=== PATIENT | male | born 1945 | race Caucasian/White ===

== ENCOUNTER 2019-04-07 09:52 | Inpatient (IN) | payer OTHER ==
[2019-04-07] MEDS ORDERED: Ondansetron INJ* 2 MG/ML VIAL IV ONE (10:12)
[2019-04-07] MEDS ORDERED: Morphine 4 MG/ML VIAL (1 ml) 4 MG/ML VIAL IV ONE (10:20)
[2019-04-07 11:03] LABS: ABS Lymphocytes 0.9 10^3/ul (1.0-4.8); ABS Monocytes 0.8 10^3/ul (0-0.8); ABS Neutrophils 10.1 10^3/ul (1.5-7.7); Eosinophil % 0.2 %; Hematocrit 37 % (42-52); Hemoglobin 12.2 g/dL (14.0-18.0); Lymphocyte % 7.8 %; Mean Corpuscular HGB Conc 33 g/dL (31-36); Mean Corpuscular Hemoglobin 30 pg (27-31); Mean Corpuscular Volume 90 fL (80-94); Mean Platelet Volume 8.4 fL (7.4-10.4); Platelet Count 193 10^3/uL (150-450); Red Blood Count 4.12 10^6 /uL (4.18-5.48); Red Cell Distribution Width 16 % (10-15); White Blood Count 11.9 10^3/uL (3.5-10.8)
[2019-04-07 11:15] LABS: INR 4.43 (0.82-1.09)
[2019-04-07 11:30] LABS: ALT 13 U/L (7-52); AST 12 U/L (13-39); Albumin 3.8 g/dL (3.2-5.2); Albumin/Globulin Ratio 1.2 (1-3); Alkaline Phosphatase 73 U/L (34-104); Anion Gap 6 mmol/L (2-11); BUN/Creatinine Ratio 23.7 (8-20); Blood Urea Nitrogen 14 mg/dL (6-24); CO2 Carbon Dioxide 28 mmol/L (22-32); Chloride 108 mmol/L (101-111); EGFR Non-African American 133.9 (>60); Globulin 3.2 g/dL (2-4); Glucose 117 mg/dL (70-100); Magnesium 1.9 mg/dL (1.9-2.7); Potassium 3.7 mmol/L (3.5-5.0); Sodium 142 mmol/L (135-145)
--- NOTE | 2019-04-07 12:44 | ED ---
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 Patient resides at [address] [place] [address] and was recently transferred there 10 days ago. He states for the last 10 days he has felt dizzy, however has never had a syncopal episode until today. He states this morning while waiting for his medications, he was becoming dizzy and the next thing he remembers he was on the floor. He did not ambulate immediately following as he was told to stay down into the ambulance arrived. He denies any CP or SOB. He does endorse diffuse back pain throughout, he states this is at his baseline, however now worse. He does not take any medication for his back. Currently medications include Coumadin, sotalol, lisinopril, amlodipine. He does not see a plate corrector. Since he was recently transferred from [place] to [address] [place] [address], he does not have good continuity of care and has not seen a primary care provider which has followed his medications. - History Of Current Complaint Chief Complaint: EDSyncope Time Seen by Provider: 04/07/19 10:01 Hx Obtained From: Patient Onset/Duration: Sudden Onset Timing: Constant Context: Witnessed Activity At Onset: At Rest Associated Head Trauma: Yes Alleviating Factor(s): Nothing - Risk Factors Cardiac Risk Factors: Hypertension, Elevated Lipids, CHF, CAD Dysrhythmia Risk Factors: Age Greater Than 45, Underlying CAD, Underlying CHF Risk Factor(s): Coumadin - Allergies/Home Medications Allergies/Adverse Reactions: Allergies Allergy/AdvReac Type Severity Reaction Status Date / Time No Known Allergies Allergy Verified 04/07/19 10:16 Home Medications: Home Medications Atorvastatin* [Lipitor*] 10 mg PO BEDTIME 04/07/19 [History Confirmed 04/07/19] Ferrous Sulfate TAB* 325 mg PO DAILY 04/07/19 [History Confirmed 04/07/19] Finasteride TAB* [Proscar TAB*] 5 mg PO DAILY 04/07/19 [History Confirmed ] Furosemide TAB* [Lasix TAB*] 40 mg PO DAILY 04/07/19 [History Confirmed 04/07/19 ] Lisinopril TAB* [Prinivil TAB*] 40 mg PO DAILY 04/07/19 [History Confirmed 04/07] Multivitamins/Minerals TAB* [Theragran/minerals TAB*] 1 tab PO DAILY 04/07/19 [ History Confirmed 04/07/19] Omeprazole CAP (NF) [Prilosec CAP* 20 MG] 20 mg PO DAILY 04/07/19 [History Confirmed 04/07/19] Potassium Chloride [Klor-Con 8] 8 meq PO DAILY 04/07/19 [History Confirmed 04/07] Ranitidine TAB (NF) [Zantac TAB (NF)] 150 mg PO BID 04/07/19 [History Confirmed 04/07/19] Sotalol TAB* [Betapace 80 MG TAB*] 120 mg PO BID 04/07/19 [History Confirmed ] Warfarin TAB(*) [Coumadin TAB(*)] 1 mg PO DAILY 04/07/19 [History Confirmed ] Warfarin TAB(*) [Coumadin TAB(*)] 2.5 mg PO DAILY 04/07/19 [History Confirmed ] amLODIPine TAB* [Norvasc 5 mg TAB*] 10 mg PO DAILY 04/07/19 [History Confirmed 04/07/19] PMH/Surg Hx/FS Hx/Imm Hx Previously Healthy: Yes - Immunization History Hx Pertussis Vaccination: No Immunizations Up to Date: Yes Infectious Disease History: No Infectious Disease History: Denies: Traveled Outside the [place] in Last 30 Days - Social History Occupation: Unemployed Lives: Alone - [facility] Alcohol Use: None Hx Substance Use: No Substance Use Type: Reports: None Hx Tobacco Use: Yes Smoking Status (MU): Former Smoker Review of Systems Constitutional: Negative Negative: Fever, Chills, Fatigue, Skin Diaphoresis Negative: Palpitations, Chest Pain Negative: Shortness Of Breath, Cough Genitourinary: Negative Positive: no symptoms reported, see HPI Positive: Arthralgia - back pain diffuse Positive: Other - small laceration posterior scalp Negative: Headache, Weakness All Other Systems Reviewed And Are Negative: Yes Physical Exam Triage Information Reviewed: Yes Vital Signs On Initial Exam: Initial Vitals Temp Pulse Resp BP Pulse Ox 96.1 F 90 16 146/96 98 04/07/19 09:55 04/07/19 09:55 04/07/19 09:55 04/07/19 09:55 04/07/19 09:55 Vital Signs Reviewed: Yes Appearance: Positive: Well-Appearing, Signs of Trauma Skin: Positive: Skin Color Reflects Adequate Perfusion, Other - 1.2 posterior scalp Neck: Positive: Supple, No Lymphadenopathy Respiratory/Lung Sounds: Positive: Clear to Auscultation, Breath Sounds Present Cardiovascular: Positive: RRR, Pulses are Symmetrical in both Upper and Lower Extremities Musculoskeletal: Positive: Pain @ - diffusely throughout back Neurological: Positive: Speech Normal Psychiatric: Positive: Affect/Mood Appropriate Procedures - Laceration/Wound Repair scalp Location: head Description: Linear Length, Depth and Shape: 1.2cm length, superficial Betadine Prep?: No Irrigated w/ Saline (ccs): 60 Laceration/Wound Explored: clean Sterile Dressing Applied?: No Diagnostics - Vital Signs Vital Signs Temp Pulse Resp BP Pulse Ox 04/07/19 10:42 16 04/07/19 10:00 86 35 97 04/07/19 09:59 88 98 04/07/19 09:57 88 146/96 98 04/07/19 09:55 96.1 F 90 16 146/96 98 - Laboratory Lab Results: Lab Results 04/07/19 04/07/19 04/07/19 Range/Units 10:55 10:55 10:55 WBC 11.9 H (3.5-10.8) 10^3/uL RBC 4.12 L (4.18-5.48) 10^6 /uL Hgb 12.2 L (14.0-18.0) g/dL Hct 37 L (42-52) % MCV 90 (80-94) fL MCH 30 (27-31) pg MCHC 33 (31-36) g/dL RDW 16 H (10-15) % Plt Count 193 (150-450) 10^3/uL MPV 8.4 (7.4-10.4) fL Neut % (Auto) 85.0 % Lymph % (Auto) 7.8 % Lumpkin % (Auto) 6.8 % Eos % (Auto) 0.2 % Baso % (Auto) 0.2 % Absolute Neuts (auto) 10.1 H (1.5-7.7) 10^3/ul Absolute Lymphs (auto) 0.9 L (1.0-4.8) 10^3/ul Absolute Monos (auto) 0.8 (0-0.8) 10^3/ul Absolute Eos (auto) 0.0 (0-0.6) 10^3/ul Absolute Basos (auto) 0.0 (0-0.2) 10^3/ul Absolute Nucleated RBC 0.0 10^3/ul Nucleated RBC % 0.0 INR (Anticoag Therapy) 4.43 H (0.82-1.09) Sodium 142 (135-145) mmol/L Potassium 3.7 (3.5-5.0) mmol/L Chloride 108 (101-111) mmol/L Carbon Dioxide 28 (22-32) mmol/L Anion Gap 6 (2-11) mmol/L BUN 14 (6-24) mg/dL Creatinine 0.59 L (0.67-1.17) mg/dL Est GFR ( Amer) 162.0 (>60) Est GFR (Non-Af Amer) 133.9 (>60) BUN/Creatinine Ratio 23.7 H (8-20) Glucose 117 H (70-100) mg/dL Lactic Acid (0.5-2.0) mmol/L Calcium 9.0 (8.6-10.3) mg/dL Magnesium 1.9 (1.9-2.7) mg/dL Total Bilirubin 0.60 (0.2-1.0) mg/dL AST 12 L (13-39) U/L ALT 13 (7-52) U/L Alkaline Phosphatase 73 (34-104) U/L Troponin I 0.00 (<0.04) ng/mL B-Natriuretic Peptide (<=100) pg/mL Total Protein 7.0 (6.4-8.9) g/dL Albumin 3.8 (3.2-5.2) g/dL Globulin 3.2 (2-4) g/dL Albumin/Globulin Ratio 1.2 (1-3) 04/07/19 04/07/19 Range/Units 10:55 10:55 WBC (3.5-10.8) 10^3/uL RBC (4.18-5.48) 10^6 /uL Hgb (14.0-18.0) g/dL Hct (42-52) % MCV (80-94) fL MCH (27-31) pg MCHC (31-36) g/dL RDW (10-15) % Plt Count (150-450) 10^3/uL MPV (7.4-10.4) fL Neut % (Auto) % Lymph % (Auto) % Lumpkin % (Auto) % Eos % (Auto) % Baso % (Auto) % Absolute Neuts (auto) (1.5-7.7) 10^3/ul Absolute Lymphs (auto) (1.0-4.8) 10^3/ul Absolute Monos (auto) (0-0.8) 10^3/ul Absolute Eos (auto) (0-0.6) 10^3/ul Absolute Basos (auto) (0-0.2) 10^3/ul Absolute Nucleated RBC 10^3/ul Nucleated RBC % INR (Anticoag Therapy) (0.82-1.09) Sodium (135-145) mmol/L Potassium (3.5-5.0) mmol/L Chloride (101-111) mmol/L Carbon Dioxide (22-32) mmol/L Anion Gap (2-11) mmol/L BUN (6-24) mg/dL Creatinine (0.67-1.17) mg/dL Est GFR ( Amer) (>60) Est GFR (Non-Af Amer) (>60) BUN/Creatinine Ratio (8-20) Glucose (70-100) mg/dL Lactic Acid 2.3 H* (0.5-2.0) mmol/L Calcium (8.6-10.3) mg/dL Magnesium (1.9-2.7) mg/dL Total Bilirubin (0.2-1.0) mg/dL AST (13-39) U/L ALT (7-52) U/L Alkaline Phosphatase (34-104) U/L Troponin I (<0.04) ng/mL B-Natriuretic Peptide 34 (<=100) pg/mL Total Protein (6.4-8.9) g/dL Albumin (3.2-5.2) g/dL Globulin (2-4) g/dL Albumin/Globulin Ratio (1-3) Result Diagrams: 04/08/19 05:27 04/08/19 05:27 Lab Statement: Any lab studies that have been ordered have been reviewed, and results considered in the medical decision making process. Course/Dx Course Of Treatment: During his course of treatment, the patient is evaluated for trauma following a syncopal episode. On arrival into the ED, the patient has been placed in a c-collar prior to arrival. This was left in place until CT scans were obtained. Patient was rolled from hardboard. Physical examination the cervical, thoracic and lumbar spine revealed no specific tenderness or abnormalities. No step-off noted. No signs of trauma. Posterior scalp with approximately 1.2 cm laceration. Bleeding is controlled at this time. No other evidence of trauma. CT cervical, thoracic and lumbar spine obtained which shows no acute abnormalities, however remote and chronic changes. Labs obtained which are fairly unremarkable except for lactic 2.3. Nonspecific T wave changes on EKG V2 to V6. [facility] as well as [address] [place] [address] was contacted in attempts to obtain further medical records as well as old EKGs. Discussed case with hospitalist, who agreed to admit for further evaluation of T wave changes/inversions and syncopal episode. - Diagnoses Provider Diagnoses: Syncope and collapse, T wave inversion in EKG, Back pain Discharge - Sign-Out/Discharge Documenting (check all that apply): Patient Departure All imaging exams completed and their final reports reviewed: Yes Patient Received Moderate/Deep Sedation with Procedure: No - Discharge Plan Condition: Fair Disposition: ADMITTED TO [facility] - Billing Disposition and Condition Condition: FAIR Disposition: Admitted to [facility]
[2019-04-07] MEDS ORDERED: Magnesium Oxide TAB* 400 MG PO ONE (13:00)
[2019-04-07 13:49] LABS: Total Iron Binding Capacity 374 mcg/dL (250-450); Transferrin 267 mg/dL (203-362)
[2019-04-07 14:04] LABS: TSH (Thyroid Stimulating Horm) 0.35 mcIU/mL (0.34-5.60)
[2019-04-07 14:12] LABS: Ferritin 40.1 ng/mL (24-336)
[2019-04-07 14:15] LABS: Folate 6.85 ng/mL (>3.99)
--- NOTE | 2019-04-07 16:58 | HP ---
DATE OF ADMISSION: 04/07/2019. ATTENDING PHYSICIAN: Dr. Sandrine Cabello * (dictated by Hannah Wesley, NICKI). PRIMARY CARE PHYSICIAN: Provider at [facility]. CHIEF COMPLAINT: Syncope. HISTORY OF PRESENT ILLNESS: Mr. Chaparro is a 73-year-old male with a past medical history significant for A-fib, sick sinus syndrome, hyperlipidemia, status post AVR, hypertension, CHF, lower GI bleed who presented to the emergency department today after a syncopal episode. The patient reports that he was standing, filling out his pills into his pill box when he had a syncopal episode. He reports he felt a little dizzy prior to the episode and then woke on the floor with his bunkmate yelling for help. The patient denies any associated symptoms such as shortness of breath, chest pain, nausea, and palpitations. The patient reports that he has been experiencing dizziness off and on for approximately ten days. He reports aggravating symptoms include standing. He reports alleviating symptoms include rest. He also reports that he has been feeling overlying fatigued, weak, and just "not himself." The patient denies any fevers, anorexia, chest pain, edema, cough, hemoptysis, shortness of breath, nausea or vomiting, diarrhea, abdominal pain, hematuria, dysuria, focal weakness, visual complaints, sore throat, nasal congestion, arthralgias or myalgias, rashes or lesions. It should be noted that the patient is on Coumadin and has a supratherapeutic INR. While in the emergency room, the patient had a CT of the brain which showed a posterior scalp hematoma, no intracranial abnormality. Given his fall , he also had imaging of his cervical spine, lumbar spine, and thoracic spine, all of which showed no fracture or malalignment. He also had a chest x-ray which was unremarkable. Given the patient's syncope and his cardiac history, the Hospitalists were asked to admit. PAST MEDICAL HISTORY: 1. A-fib. 2. Sick sinus syndrome, status post pacemaker. 3. Hyperlipidemia. 4. Status post AVR. 5. Hypertension. 6. CHF. 7. Lower GI bleed. PAST SURGICAL HISTORY: AVR, right wrist. HOME MEDICATIONS: 1. Coumadin 2.5 mg p.o. daily. 2. Coumadin 1 mg p.o. daily. 3. Ferrous Sulfate 325 mg p.o. daily. 4. Multivitamin one tab p.o. daily. 5. Lipitor 10 mg p.o. at bedtime. 6. Sotalol 120 mg p.o. b.i.d. 7. Ranitidine 150 mg p.o. b.i.d. 8. Potassium Chloride 8 mEq p.o. daily. 9. Omeprazole 20 mg p.o. daily. 10. Lisinopril 40 mg p.o. daily. 11. Lasix 40 mg p.o. daily. 12. Finasteride 5 mg p.o. daily. 13. Amlodipine 10 mg p.o. daily. ALLERGIES: The patient has no known drug allergies. FAMILY HISTORY: The patient reports mother had asthma and at age 94. The patient reports father had a cardiac history and at the age of 102. SOCIAL HISTORY: The patient resides at [facility] where he was recently transferred from [place]. The patient has been incarcerated for approximately 48 years. The patient is a former smoker. He reports 30 years at a pack a day. The patient reports occasional alcohol use "when I can get my hands on it." He reports his last drink was approximately 48 years ago. The patient reports illicit drug use. He reports his drug of choice was heroin and once again will use it "when I can get my hands on it." PHYSICAL EXAMINATION GENERAL: Mr. Chaparro is a 73-year-old male who is lying in bed. He appeared to be in no acute distress. He appears his stated age. VITAL SIGNS: Temperature 96.1, heart rate 75, respiratory rate 16, O2 saturation 97 percent on room air, blood pressure 146/96. HEENT: EOM's intact. PERRLA. Oral mucosa is moist without lesion. Posterior pharynx is clear. NECK: Supple. No lymphadenopathy. CARDIAC: S1, S2 present. Systolic murmur. Regular rate and rhythm. No rubs or gallops. RESPIRATORY: Lungs are clear to auscultation. Good aeration. No rhonchi, wheezes, or rubs. ABDOMEN: Soft, nontender. Bowel sounds normoactive. EXTREMITIES: No edema. No clubbing or cyanosis. Pedal pulses are 2+ bilaterally. MUSCULOSKELETAL: No pain or deformities. SKIN: The patient had a laceration to the posterior head. NEUROLOGIC: Cranial nerves II through XII are grossly intact. No drift. Strength is 5/5 throughout. DIAGNOSTIC STUDIES/LABORATORY DATA: WBC 11.9, hemoglobin 12.2, hematocrit 37, platelet 193; INR 4.43; sodium 142, potassium 3.7, chloride 108, carbon dioxide 28, BUN 14, creatinine 0.59, glucose 117, lactic 2.3, magnesium 1.9, troponin 0.00, BNP 34. ASSESSMENT AND PLAN: 1. Syncope: The patient reports he has been intermittently dizzy and had a full syncopal episode today which resulted in a head laceration. Given that patient is supratherapeutic on his INR, he had a head CT which was negative. I would have a low threshold for repeating this head CT given his supratherapeutic INR and his syncopal episode. I have placed his on q.2 hour neuro checks. On the differential, include cardiac. Given the patient's history and presence of a pace-maker, I will obtain an echo and have his pacemaker interrogated. I will also cycle his troponins. The patient currently denies any chest pain or other cardiac symptoms, but I think it is worth cycling his troponins and repeating EKG's. He will also be placed on tele. I will also obtain orthostatic vital signs. Additionally on the differential, include infection. The patient had a mildly elevated WBC which I suspect is secondary to syncope as he is not tachycardic and does not have a fever. He also had a negative chest x-ray. The patient has no recent symptoms of a viral or bacterial infection. Either way, I have ordered a urine and will repeat a CBC tomorrow. Finally on the differential, include anemia. The patient is only slightly anemic at 12.2 and 37. The patient does report a history of anemia due to a lower GI bleed where he was seen at [facility]. I have ordered a stool. I have also ordered a iron study, vitamin B12, and folate. 2. Lactic acidosis: The patient has a slightly elevated lactic at 2.3. I suspect this is due to his syncopal episode and I will repeat it in three hours. The patient does not meet SIRS criteria currently. 3. A-fib: We will place the patient on tele. He is currently in sinus rhythm on the EKG. We will continue his Coumadin per pharmacy protocol, but given his supratherapeutic INR today, I suspect we will hold and repeat an INR tomorrow. 4. T-wave changes: The patient has new T-waves inversions in V2 through 6. He does not have any cardiac symptoms which would suspect an acute problem. His last EKG that we could obtain from his facility was four years ago which he did not have these inversions at that time. Once again, we will repeat his troponin, repeat an EKG, and obtain an echo. 5. Sick sinus rhythm, status post pacer: The patient denies palpitations or other cardiac symptoms. I have placed an order for his pacemaker to be interrogated. He has a mmCHANNEL. 6. Hyperlipidemia: The patient has a history of hyperlipidemia and is currently on a statin which we will continue. I have also ordered lipids to be drawn for the morning. 7. History of AVR: The patient has an aortic valve replacement. He is not a great historian and is unsure why he needed this replaced. I have ordered an echo and will continue his Coumadin. 8. Hypertension: The patient is currently normotensive with vital signs in the 140s. I will continue his home medications unless he has positive orthostasis. 9. CHF: The patient does not currently appear to in CHF exacerbation as his BNP is normal, lung exam is unremarkable, and is not complaining of any shortness of breath and has no edema. I will continue his Lasix, place him on strict I's and O's, and have daily weights. Once again, we are also obtaining an echo. 10. FEN: The patient will be placed on a cardiac, no caffeine diet. 11. DVT prophylaxis: The patient is high risk. The patient will be continued on his Coumadin per pharmacy protocol. 12. Code status: The patient is a full code. TIME SPENT: Approximately 65 minutes were spent on this admission, greater than half that time was spent [id number] with the patient obtaining my history , performing my physical exam, and discussing plan of care. This plan has also been reviewed with the my attending, Dr. Cabello, who agreed with the plan of care. Reviewed by HANNAH WESLEY NP 04/11/19 @ [id number]/[facility] #: [id number] MARGARET
[2019-04-07] MEDS ORDERED: Metoprolol Tartrate IV* 1 MG/ML 5 ML VIAL IV PRN (17:13)
[2019-04-07] MEDS ORDERED: Metoprolol Tartrate IV* 1 MG/ML 5 ML VIAL ONE (17:19)
[2019-04-07] MEDS ORDERED: NS 0.9% 1000 ML** 1,000 ML IV SCH (17:30)
[2019-04-07] MEDS: Acetaminophen TAB* 325 MG PO PRN (20:21)
[2019-04-07] MEDS: Famotidine TAB* 20 MG PO SCH (20:22)
[2019-04-07] MEDS: Atorvastatin* 10 MG TAB PO SCH (20:22)
[2019-04-07] MEDS: Sotalol TAB* 80 MG PO SCH (20:22)
[2019-04-07 21:55] LABS: Urine Appearance Turbid; Urine Bacteria 3+ (Absent); Urine Bilirubin Negative (Negative); Urine Blood Negative (Negative); Urine Color Amber; Urine Glucose Negative (Negative); Urine Ketones Negative (Negative); Urine Nitrite Positive (Negative); Urine Protein 1+(30 mg/dL) (Negative); Urine Red Blood Cell 1+(3-5/hpf) (Absent); Urine Urobilinogen Negative (Negative); Urine White Blood Cell 3+(>20/hpf) (Absent)
--- NOTE | 2019-04-07 22:26 | ECHO ---
*[facility]* [place] [address] Fax #: [phone] Transthoracic Echocardiogram Patient: Martin Chaparro [id number] : 1945 Study Date: 04/07/2019 Age: 73 Gender: M HR: 78 bpm Height: 70 in /177.8 cm BSA: 2.09 m^2 Weight: 199.6 lb /90.7 kg BMI: 28.7 kg/m^2 *Park Keeper: * Chloé Golden [facility] *Referring Physician: * Nubia Vences *Reading Physician: * Bryan Navarro MD Indications: Syncope. History: Congestive heart failure. Chronic obstructive pulmonary disease. Risk factors: Hypertension. Dyslipidemia. Labs, prior tests, procedures, and surgery: Permanent pacemaker system implantation. Aortic valve replacement with a bioprosthetic valve. Conclusions Summary: - Left ventricle: Systolic function is normal. The estimated ejection fraction is 65-70%. Features are consistent with a pseudonormal left ventricular filling pattern, with concomitant abnormal relaxation and increased filling pressure (grade 2 diastolic dysfunction). - Right ventricle: The cavity size is normal. Wall thickness is mildly to moderately increased. - Mitral valve: Is mildly to moderately calcified. The leaflets are mildly thickened. Mobility is restricted. The findings are consistent with trivial stenosis. There is trace regurgitation. - Aortic valve: The mean systolic gradient is 15.0 mm Hg. The LVOT to aortic valve VTI ratio is 0.34. The valve area by the velocity-time integral method is 1.20 cm^2. The valve area by the peak velocity method is 1.10 cm^2. Study data: Transthoracic echocardiogram. Procedure: Transthoracic echocardiography was performed. Image quality was fair. Complete 2D, spectral Doppler, and color flow Doppler. Location: Emergency department. Patient status: Inpatient. Patient room number: 9. Rhythm: Normal sinus rhythm. Findings Left ventricle: The cavity size is normal. Wall thickness is moderately increased. Systolic function is normal. The estimated ejection fraction is 65-70%. Wall motion is normal; there are no regional wall motion abnormalities. Features are consistent with a pseudonormal left ventricular filling pattern, with concomitant abnormal relaxation and increased filling pressure (grade 2 diastolic dysfunction). Right ventricle: The cavity size is normal. Wall thickness is mildly to moderately increased. Pacer wire noted in the right ventricle. Systolic function is normal. Left atrium: The atrium is mildly dilated. Right atrium: Not well visualized. Pacer wire noted in right atrium. Mitral valve: Is mildly to moderately calcified. The leaflets are mildly thickened. Mobility is restricted. The findings are consistent with trivial stenosis. There is trace regurgitation. Aortic valve: Not well visualized. There is a bioprosthetic valve. There is no significant regurgitation. Tricuspid valve: The leaflets are normal thickness. There is no evidence of stenosis. There is no significant regurgitation. Pulmonic valve: The leaflets are normal thickness. There is no evidence of stenosis. There is no significant regurgitation. Aorta: The aortic root appears normal. The aortic arch appears normal. Pericardium: There is no significant pericardial effusion. Pulmonary arteries: Not well visualized. Systolic pressure can not be accurately estimated. Systemic veins: Inferior vena cava: The vessel is normal in size. There is (>= 50%) respiratory change in the IVC dimension. Measurements Left ventricle Value Ref Aortic valve continued Value Ref YEIMY, LAX (L) 4.0 cm 4.2 - 5.8 Mean grad, S 15.0 mm Hg ---- ESD, LAX 3.2 cm 2.5 - 4.0 Peak grad, S 30.0 mm Hg ---- FS, LAX (L) 20 % 25 - 43 LVOT/AV, VTI ratio 0.34 ---- PW, ED, LAX (H) 1.4 cm 0.6 - 1.0 BROOK, VTI 1.20 cm^2 ---- EF (L) 41 % 52 - 72 BROOK, Vmax 1.10 cm^2 ---- E', lat lorenza, TDI (L) 5.1 cm/sec >=10.0 E/e', lat lorenza, 14 Mitral valve Value Ref TDI Peak E 0.69 m/sec ---- E', med lorenza, TDI (L) 3.9 cm/sec >=7.0 Peak A 0.96 m/sec ---- E/e', med lorenza, 18 Decel time 219 ms --- - TDI PHT 91 ms ---- E', avg, TDI 4.5 cm/sec Mean grad, D 2.0 mm Hg --- - E/e', avg, TDI (H) 15 <=14 Peak grad, D 5.0 mm Hg ---- Peak E/A ratio 0.7 ---- LVOT Value Ref MVA, PHT 2.4 cm^2 ---- Diam, S 2.10 cm Area 3.5 cm^2 Pulmonic valve Value Ref Peak regan, S 0.84 m/sec Peak v, S 0.76 m/sec ---- VTI, S 17.0 cm Peak grad, S 2.0 mm Hg ---- Mean grad, S 1 mm Hg SV 58 ml Aortic root Value Ref SV/bsa 28 ml/m^2 Root diam 3.2 cm <4.2 Ventricular septum Value Ref Ascending aorta Value Ref IVS, ED (H) 1.6 cm 0.6 - 1.0 AAo AP diam, S 3.2 cm ---- Right ventricle Value Ref Aortic arch Value Ref YEIMY, LAX 3.3 cm Arch diam 2.2 cm ---- Left atrium Value Ref Decending aorta Value Ref AP dim, ES (H) 4.20 cm 3.00 - Rosana peak regan 0.39 m/sec ---- 4.00 ML dim, A4C 4.3 cm Inferior vena cava Value Ref SI dim, A4C 5.7 cm Diam 1.0 cm ---- Vol/bsa, ES, A/L (H) 35 ml/m^2 16 - 34 Pulmonary veins Value Ref Right atrium Value Ref Peak v, S 0.49 m/sec ---- Estimated RAP 8 mm Hg Peak v, D 0.38 m/sec ---- Peak S/D ratio 1.3 ---- Aortic valve Value Ref A rev duration 98 ms ---- Lorenza diam, ED 2.0 cm Peak v, S 2.7 m/sec VTI, S 50.0 cm Legend: (L) and (H) gary values outside specified reference range. Prepared and electronically signed by Bryan Navarro MD 04/07/2019 22:24
[2019-04-08 06:01] LABS: ABS Eosinophils 0.1 10^3/ul (0-0.6); ABS Lymphocytes 1.4 10^3/ul (1.0-4.8); ABS Monocytes 0.9 10^3/ul (0-0.8); ABS Neutrophils 6.7 10^3/ul (1.5-7.7); Eosinophil % 1.4 %; Hematocrit 33 % (42-52); Hemoglobin 11.2 g/dL (14.0-18.0); Lymphocyte % 15.3 %; Mean Corpuscular HGB Conc 34 g/dL (31-36); Mean Corpuscular Hemoglobin 30 pg (27-31); Mean Corpuscular Volume 90 fL (80-94); Mean Platelet Volume 8.5 fL (7.4-10.4); Nucleated Red Blood Cells % 0.1; Platelet Count 184 10^3/uL (150-450); Red Blood Count 3.71 10^6 /uL (4.18-5.48); Red Cell Distribution Width 16 % (10-15); White Blood Count 9.1 10^3/uL (3.5-10.8)
[2019-04-08 06:09] LABS: INR 3.61 (0.82-1.09)
[2019-04-08 06:17] LABS: BUN/Creatinine Ratio 27.6 (8-20); Calcium 8.8 mg/dL (8.6-10.3); EGFR African American 165.3 (>60); EGFR Non-African American 136.6 (>60); HDL Cholesterol 35.8 mg/dL; Potassium 3.6 mmol/L (3.5-5.0)
[2019-04-08] MEDS ORDERED: Lisinopril TAB* 10 MG PO SCH (09:00)
[2019-04-08] MEDS ORDERED: Furosemide TAB* 40 MG PO SCH (09:00)
[2019-04-08] MEDS ORDERED: Warfarin TAB(*) 2.5 MG PO SCH (09:00)
[2019-04-08] MEDS ORDERED: amLODIPine TAB* 5 MG PO SCH (09:00)
[2019-04-08] MEDS ORDERED: Warfarin TAB(*) 1 MG PO SCH (09:00)
[2019-04-08] MEDS: Famotidine TAB* 20 MG PO SCH (09:38)
[2019-04-08] MEDS: Potassium Chlor TAB* 10 MEQ TAB.ER PO SCH (09:38)
[2019-04-08] MEDS: Ferrous Sulfate TAB* 325 MG PO SCH (09:38)
[2019-04-08] MEDS: Finasteride TAB* 5 MG PO SCH (09:39)
[2019-04-08] MEDS: Sotalol TAB* 80 MG PO SCH (09:39)
[2019-04-08] MEDS: Pantoprazole TAB * 40 MG TAB PO SCH (09:39)
[2019-04-08] MEDS: Multivitamins/Minerals TAB PO SCH (09:39)
[2019-04-08] MEDS ORDERED: NS 0.9% 1000 ML** 1,000 ML IV SCH (10:30)
--- NOTE | 2019-04-08 11:43 | PN ---
Subjective Date of Service: 04/08/19 Interval History: Discussed patient's plan of care and status. Per nursing patient did have SVT overnight which resolved with Metoprolol IV push and administering nightly BB early as he missed his morning dose. Patient has had no runs of SVT or any other arrythmia since SVT last evening. RN also expressing concern that patient is complaining of left hip pain and reports he believes he fell onto his left hip during his syncopal episode. Evaluated this morning while lying in bed. Denies dizziness or near syncope currently. Also denies cp, sob, nausea, vomiting, diarrhea, fever, chills, or urinary symptoms. When discussed last evening's events of SVT he does reports he felt "lightheaded ", but it resolved quickly. Objective Active Medications: Acetaminophen (Tylenol Tab*) 650 mg PO Q4H PRN PRN Reason: FEVER/PAIN Last Admin: 04/07/19 20:21 Dose: 650 mg Atorvastatin Calcium (Lipitor*) 10 mg PO BEDTIME [facility] Last Admin: 04/07/19 20:22 Dose: 10 mg Famotidine (Pepcid Tab*) 20 mg PO BID [facility]; Protocol Last Admin: 04/08/19 09:38 Dose: 20 mg Ferrous Sulfate (Ferrous Sulfate Tab*) 325 mg PO DAILY [facility] Last Admin: 04/08/19 09:38 Dose: 325 mg Finasteride (Proscar Tab*) 5 mg PO DAILY [facility] Last Admin: 04/08/19 09:39 Dose: 5 mg Ceftriaxone Sodium 1 gm/ (Sodium Chloride) 50 mls @ 100 mls/hr IVPB Q24H [facility] Sodium Chloride (Ns 0.9% 1000 Ml) 1,000 mls @ 75 mls/hr IV PER RATE [facility] Stop: 04/08/19 23:49 Metoprolol Tartrate (Lopressor Iv*) 5 mg IV Q6H PRN PRN Reason: HEART RATE/PULSE GREATER THAN: Multivitamins/Minerals (Theragran/Minerals Tab*) 1 tab PO DAILY [facility] Last Admin: 04/08/19 09:39 Dose: 1 tab Pantoprazole Sodium (Protonix Tab*) 40 mg PO DAILY [facility] Last Admin: 04/08/19 09:39 Dose: 40 mg Pharmacy Profile Note (Coumadin Per Pharmacy*) 1 note FOLLOW UP .PER PHARMACY PROTOC [facility]; Protocol Potassium Chloride (Klor Con Er Tab*) 10 meq PO DAILY [facility] Last Admin: 04/08/19 09:38 Dose: 10 meq Sotalol HCl (Betapace Tab*) 120 mg PO BID [facility] Last Admin: 04/08/19 09:39 Dose: 120 mg Warfarin Sodium (Coumadin Tab(*)) 1 mg PO 1700 [facility] Stop: 04/08/19 17:01 Vital Signs - 8 hr 04/08/19 08:03 Temperature 98.7 F Pulse Rate 71 Respiratory 17 Rate Blood Pressure 134/86 (mmHg) O2 Sat by Pulse 91 Oximetry Oxygen Devices in Use Now: None Appearance: Comfortable, NAD Eyes: No Scleral Icterus Ears/Nose/Mouth/Throat: Clear Oropharnyx, Mucous Membranes Moist Neck: NL Appearance and Movements; NL JVP Respiratory: Symmetrical Chest Expansion and Respiratory Effort, Clear to Auscultation Cardiovascular: RRR, No Edema, - - Systolic murmur. Abdominal: NL Sounds; No Tenderness; No Distention Lymphatic: No Cervical Adenopathy Extremities: No Clubbing, Cyanosis, - - Pain to palpation and movement of left hip. Skin: No Rash or Ulcers Neurological: Alert and Oriented x 3, NL Muscle Strength and Tone Nutrition: Taking PO's Result Diagrams: 04/08/19 05:27 04/08/19 05:27 Additional Lab and Data: Laboratory Results - last 24 hr 04/07/19 04/07/19 04/07/19 10:55 14:30 14:30 WBC RBC Hgb Hct MCV MCH MCHC RDW Plt Count MPV Neut % (Auto) Lymph % (Auto) [place] % (Auto) Eos % (Auto) Baso % (Auto) Absolute Neuts (auto) Absolute Lymphs (auto) Absolute Monos (auto) Absolute Eos (auto) Absolute Basos (auto) Absolute Nucleated RBC Nucleated RBC % INR (Anticoag Therapy) Sodium 142 Potassium 3.7 Chloride 108 Carbon Dioxide 28 Anion Gap 6 BUN 14 Creatinine 0.59 L Est GFR ( Amer) 162.0 Est GFR (Non-Af Amer) 133.9 BUN/Creatinine Ratio 23.7 H Glucose 117 H Hemoglobin A1c Lactic Acid 1.7 Calcium 9.0 Magnesium 1.9 Iron TNP TIBC 374 % Saturation TNP Unsat Iron Binding TNP Transferrin 267 Ferritin 40.1 Total Bilirubin 0.60 AST 12 L ALT 13 Alkaline Phosphatase 73 Troponin I 0.00 0.01 Total Protein 7.0 Albumin 3.8 Globulin 3.2 Albumin/Globulin Ratio 1.2 Triglycerides Cholesterol LDL Cholesterol HDL Cholesterol Vitamin B12 358 Folate 6.85 TSH 0.35 Urine Color Urine Appearance Urine pH Ur Specific Orient Urine Protein Urine Ketones Urine Blood Urine Nitrate Urine Bilirubin Urine Urobilinogen Ur Leukocyte Esterase Urine WBC (Auto) Urine RBC (Auto) Urine Bacteria Urine Glucose 04/07/19 04/07/19 04/07/19 14:30 19:03 21:37 WBC RBC Hgb Hct MCV MCH MCHC RDW Plt Count MPV Neut % (Auto) Lymph % (Auto) [place] % (Auto) Eos % (Auto) Baso % (Auto) Absolute Neuts (auto) Absolute Lymphs (auto) Absolute Monos (auto) Absolute Eos (auto) Absolute Basos (auto) Absolute Nucleated RBC Nucleated RBC % INR (Anticoag Therapy) Sodium Potassium Chloride Carbon Dioxide Anion Gap BUN Creatinine Est GFR ( Amer) Est GFR (Non-Af Amer) BUN/Creatinine Ratio Glucose Hemoglobin A1c Lactic Acid Calcium Magnesium Iron 25 L TIBC % Saturation Unsat Iron Binding Transferrin Ferritin Total Bilirubin AST ALT Alkaline Phosphatase Troponin I 0.01 Total Protein Albumin Globulin Albumin/Globulin Ratio Triglycerides Cholesterol LDL Cholesterol HDL Cholesterol Vitamin B12 Folate TSH Urine Color Abby Urine Appearance Turbid Urine pH 6.0 Ur Specific Orient 1.020 Urine Protein 1+(30 mg/dl) A Urine Ketones Negative Urine Blood Negative Urine Nitrate Positive A Urine Bilirubin Negative Urine Urobilinogen Negative Ur Leukocyte Esterase 2+ A Urine WBC (Auto) 3+(>20/hpf) A Urine RBC (Auto) 1+(3-5/hpf) A Urine Bacteria 3+ A Urine Glucose Negative 04/08/19 04/08/19 04/08/19 05:27 05:27 05:27 WBC 9.1 RBC 3.71 L Hgb 11.2 L Hct 33 L MCV 90 MCH 30 MCHC 34 RDW 16 H Plt Count 184 MPV 8.5 Neut % (Auto) 73.1 Lymph % (Auto) 15.3 [place] % (Auto) 9.8 Eos % (Auto) 1.4 Baso % (Auto) 0.4 Absolute Neuts (auto) 6.7 Absolute Lymphs (auto) 1.4 Absolute Monos (auto) 0.9 H Absolute Eos (auto) 0.1 Absolute Basos (auto) 0.0 Absolute Nucleated RBC 0.0 Nucleated RBC % 0.1 INR (Anticoag Therapy) Sodium 141 Potassium 3.6 Chloride 108 Carbon Dioxide 29 Anion Gap 4 BUN 16 Creatinine 0.58 L Est GFR ( Amer) 165.3 Est GFR (Non-Af Amer) 136.6 BUN/Creatinine Ratio 27.6 H Glucose 99 Hemoglobin A1c 5.8 H Lactic Acid Calcium 8.8 Magnesium Iron TIBC % Saturation Unsat Iron Binding Transferrin Ferritin Total Bilirubin AST ALT Alkaline Phosphatase Troponin I Total Protein Albumin Globulin Albumin/Globulin Ratio Triglycerides 118 Cholesterol 109 LDL Cholesterol 50 HDL Cholesterol 35.8 Vitamin B12 Folate TSH Urine Color Urine Appearance Urine pH Ur Specific Orient Urine Protein Urine Ketones Urine Blood Urine Nitrate Urine Bilirubin Urine Urobilinogen Ur Leukocyte Esterase Urine WBC (Auto) Urine RBC (Auto) Urine Bacteria Urine Glucose 04/08/19 05:27 WBC RBC Hgb Hct MCV MCH MCHC RDW Plt Count MPV Neut % (Auto) Lymph % (Auto) [place] % (Auto) Eos % (Auto) Baso % (Auto) Absolute Neuts (auto) Absolute Lymphs (auto) Absolute Monos (auto) Absolute Eos (auto) Absolute Basos (auto) Absolute Nucleated RBC Nucleated RBC % INR (Anticoag Therapy) 3.61 H Sodium Potassium Chloride Carbon Dioxide Anion Gap BUN Creatinine Est GFR ( Amer) Est GFR (Non-Af Amer) BUN/Creatinine Ratio Glucose Hemoglobin A1c Lactic Acid Calcium Magnesium Iron TIBC % Saturation Unsat Iron Binding Transferrin Ferritin Total Bilirubin AST ALT Alkaline Phosphatase Troponin I Total Protein Albumin Globulin Albumin/Globulin Ratio Triglycerides Cholesterol LDL Cholesterol HDL Cholesterol Vitamin B12 Folate TSH Urine Color Urine Appearance Urine pH Ur Specific Orient Urine Protein Urine Ketones Urine Blood Urine Nitrate Urine Bilirubin Urine Urobilinogen Ur Leukocyte Esterase Urine WBC (Auto) Urine RBC (Auto) Urine Bacteria Urine Glucose Microbiology and Other Data: . Assess/Plan/Problems-Billing Assessment: 73 yr old male with pmh of afib, sss with pacer, hld. s/p avr, htn, gi bleed; who presented to ED with c/o 10 days of intermittent dizziness and a syncopal episode - Patient Problems (1) Syncope Comment: - Orthotasis- gentle IVF given - Echo obtained and consistent with diastolic dysfunction. EF 65% to 70% - Pacemaker interogated and reveals frequent and sustained SVT. Cardiology consult requested and we appreciate their input - Could be multifactorial given findings of UA consistent with UTI, urinary retention, and SVT - Cont neuro checks given supratheraputic INR on admission (2) SVT (supraventricular tachycardia) Comment: - Episode of SVT last evening that broke after Metoprolol IV and giving bedtime Sotalol early - Initially suspected SVT was due to missing morning Sotalol, but now with new information from pacemaker patient seems to be having SVT often - Cardiology consulting (3) Urinary tract infection Comment: - UA consistent with UTI - Started on Rocephin - Awaiting cultures - Suspected secondary to retention (4) Urinary retention Comment: - Patient reports several years ago when in the hospital in [place] for a GI bleed he did have urinary retention is required beaulieu catheter. - Given UTI patient was bladder scanned and noted to have approx 325 mls post void. Patient is currently on Proscar, therefore, Flomax ordered. We will reassess post void tomorrow and if still retaining will need beaulieu catheter - Monitor for worsening orthostasis given Proscar and Flomax (5) Left hip pain Comment: - Tender to movement and palpation - He believes he fell onto hip during syncopal episode - Xray ordered (6) Afib Comment: - Hx of afib per documents from [facility] - Cont home medications (7) SSS (sick sinus syndrome) Comment: - S/P pacer (8) Hyperlipidemia Comment: - Cont statin (9) History of GI bleed Comment: - Hx of - Slightly normocytic anemia - Stool ordered (10) CHF (congestive heart failure) Comment: - No signs of exacerbation (11) HTN (hypertension) Comment: - Cont home medications for now. - Patient normotensive, but was noted to have orthostasis - Awaiting cardiology consult given orthostasis and frequent symptomatic SVT (12) Heart valve replaced Comment: - AVR - Echo obtained - Cont Coumadin (13) DVT prophylaxis Comment: - Coumadin per pharmacy protocol (14) Full code status Attending: Dandy Joe
[2019-04-08] MEDS: cefTRIAXone(*) 1 GM in NS 0.9% 50 ML* 50 ML IVPB SCH (11:56)
[2019-04-08] MEDS ORDERED: Tamsulosin CAP* 0.4 MG PO ONE (13:54)
[2019-04-08] MEDS: Acetaminophen TAB* 325 MG PO PRN ×2 (15:12→20:36)
[2019-04-08] MEDS ORDERED: Potassium Chloride* LIQUID 20 MEQ/15 ML UDC PO ONE (15:31)
[2019-04-08] MEDS ORDERED: Digoxin IV* 0.5 MG/2 ML AMP (0.25 MG/ML) IV SLOW PU ONE ×2 (15:31→19:19)
[2019-04-08] MEDS ORDERED: Warfarin TAB(*) 1 MG PO ONE (17:00)
[2019-04-08] MEDS ORDERED: Magnesium Sulfate 1 GM IV* 1 GM/100 ML BAG IV ONE (18:18)
--- NOTE | 2019-04-08 19:07 | CONS ---
CARDIOLOGY CONSULTATION: DATE OF CONSULT: 04/08/19 HISTORY OF PRESENT ILLNESS: I was asked to see this patient by Dr. Edna Gudino of the hospitalist service because of a syncopal episode. This patient is a 73- year-old gentleman with history of aortic valve replacement and pacemaker placement in 2013 at [facility]. He also has a history of hypertension. He has been a prisoner for 48 years. He said he occasionally uses drugs when he can use them, but has not used them recently. He said over the last few weeks he has noticed more fatigue and he does not exert himself very much. He is in his cell and walks to and from the door with his meals. He said that yesterday morning he got up and had breakfast. He had cereal, but did not drink any fluids. He said then he went to get his medicines. He was standing for about 10 minutes waiting for his medicines and he felt dizzy and passed out. He was not aware of any palpitations. He was brought to the emergency room and it was thought that perhaps he was dehydrated. He has multiple vasoactive medicines. His lisinopril and amlodipine were held. He was noted to have an episode of narrow complex tachycardia last night at about 1655, heart rate about 160 beats per minute, possible SVT with retrograde P waves or atypical flutter. His pacemaker interrogation, his time seems to be off by an hour. There were no events at about 7:30 when he had his syncope; however, his pacemaker does show that he had multiple episodes of rapid rhythm at around 6:30 in the morning. He also had one at 1539, which may coincide with the 1655 noted on our telemetry unit and that lasted for about 30 minutes. It appeared to start with an APC, but then was followed by what appeared to be retrograde P waves with R interval of about 315 msec. He has had multiple other episodes as well, some of which may be SVT, some of which may be nonsustained VT. He denies any palpitations, but says he has had intermittent dizzy spells over the last few days. He denies any fevers, chills, sweats, cough, orthopnea, or PND. No chest pain. He does report the fatigue. PAST MEDICAL HISTORY: Includes AVR, hypertension, nephrolithiasis, alcohol and drug abuse in the past. The chart says that he has AFib, but the patient is not sure about the diagnosis. He knows he has been told of fast rhythms. PAST SURGICAL HISTORY: Includes the AVR, pacemaker implantation, and right thumb surgery as a child. MEDICATIONS: His medications at home include: 1. Anticoagulation warfarin. 2. He is on iron sulfate 325 a day. 3. Multivitamin. 4. Atorvastatin 10 a day. 5. Sotalol 120 mg b.i.d. 6. Ranitidine 150 b.i.d. 7. Potassium 8 mEq daily. 8. Omeprazole 20 mg daily. 9. Lisinopril 40 mg a day. 10. Furosemide 40 mg a day. 11. Proscar 5 mg a day. 12. Amlodipine 10 a day. As an inpatient, he is on: 1. Acetaminophen. 2. Atorvastatin 10. 3. Ceftriaxone. 4. Famotidine. 5. Ferrous sulfate 325. 6. Finasteride (Proscar) 5 mg a day. 7. Metoprolol 5 mg IV q.6 p.r.n. 8. Multivitamins. 9. Pantoprazole 40 mg a day. 10. Potassium 10 mEq a day. 11. Sodium chloride at 75 cc an hour. 12. Sotalol 120 mg b.i.d. 13. Tamsulosin 0.4 mg at bedtime. ALLERGIES: He denies any allergies. FAMILY HISTORY: He had 2 brothers and 2 sisters all of which have , unknown etiology. SOCIAL HISTORY: In his social life, he has never been . He has 1 daughter. He has been a prisoner for 48 years. REVIEW OF SYSTEMS: Review of systems x10 was negative except as above. PHYSICAL EXAM: He is a well-developed, well-nourished gentleman, in no apparent distress. Blood pressure 109/62, pulse of 70, temperature 98.4. Atraumatic, normocephalic. Extraocular muscles intact. Sclerae anicteric. No significant JVD. Cardiac Exam: S1, S2 with a 3/6 systolic ejection murmur at the base. Chest was clear. No CVAT. Abdomen: Bowel sounds present. Nontender. No hepatosplenomegaly. Femoral pulses intact without bruits. Distal pulses intact. No edema. Motor strength 5/5 bilaterally. Deep tendon reflexes 2/4 in the upper extremities, unable to evaluate in the lower extremities due to him being in [facility]. DIAGNOSTIC STUDIES/LAB DATA: Labs include mild anemia with hematocrit of 33. Sodium of 141; potassium of 3.6, 3.7 yesterday; BUN of 16; creatinine of 0.58; elevated BUN/creatinine ratio; magnesium was 1.9. Troponin of 0 and 0.01. BNP of 34. Cholesterol of 109. EKG from today revealed probable atrial paced or sinus rhythm with nonspecific ST-T changes, counterclockwise rotation, anterior T-wave inversions. These are new compared to the previous EKG in his chart from 11/22/14. He had an echocardiogram from 2017, which revealed mild concentric LVH, mild aortic stenosis, peak gradient of 21, mean of 12. His EKG from 04/07/19 revealed sinus and atrial paced rhythm, prolonged QT and anterior ST depressions with T-wave inversions, again new compared to 2014. He did have an echocardiogram performed yesterday showing an EF of 65% to 70%, pseudonormal diastolic filling pattern, mild to moderately increased RVH, mildly restricted mitral leaflets with trivial stenosis, trace MR. Valve area of the prosthetic aortic valve was 1.2 cm2 that was not felt to be significantly stenosed by Doppler evaluation. IMPRESSION AND PLAN: My impression is that Mr. Chaparro had a syncopal episode of unclear etiology and has new EKG changes. He also had a pacemaker interrogation, which revealed multiple episodes of arrhythmias, tachyarrhythmias , some of which may be supraventricular tachycardia or atrial fibrillation and some of which may be ventricular tachycardia. He also has a prolonged QT interval raising the possibility of proarrhythmic effect from his sotalol and he could have ischemia. He also was on large amounts of antihypertensives and had orthostatic changes and there may be a component of dehydration and medication induced hypotension contributing. For the time being, I would recommend the followin. I would reduce his dose of sotalol to 80 b.i.d. starting tomorrow. 2. Would add digoxin to try to suppress his supraventricular tachycardia since his sotalol does not seem to be controlling that. 3. Would avoid using multiple PPIs. 4. Would avoid dehydration with his Lasix and perhaps stop that. 5. Would reduce or eliminate his lisinopril and amlodipine for now. 6. If blood pressure control is required, would consider adding Cardizem to help with rate control and supraventricular tachycardia. 7. Would try to maintain his potassium over 4 and replace his magnesium. 8. Would arrange for a stress test later this week to rule out ischemia. 9. Would consider transfer to an product safety professional for further evaluation of his multiple arrhythmias. [id number]/[facility] #: [id number] late addendum: 04.09.[address] Mar of [facility] [place] via telephone 04.08.19. 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 Given patient has failed sotalol, suggested a trial of beta tory, dig and perhaps cardizem to simpifly regimen and decrease the risk of proarrhythmia. Will consider betapace if svt recurs. will discuss transfer to EP evaluation given complex and potentially lifethreatening arrhythmias which might be best rxed with ablation. CLAUDIAD
[2019-04-08] MEDS: Metoprolol Succinate XL TAB* 50 MG PO SCH (20:36)
[2019-04-08] MEDS: Atorvastatin* 10 MG TAB PO SCH (20:36)
[2019-04-08] MEDS ORDERED: Tamsulosin CAP* 0.4 MG PO SCH (21:00)
--- NOTE | 2019-04-09 07:55 | PN ---
Subjective Date of Service: 04/09/19 Interval History: Seen by Cardiology yesterday, who stopped pt's sotolol, furosemide 40, lisinopril 40, and amlodipine 40. Cardiology consult ordered 2 doses of digoxin IV. Pt has not had recurrence of arrhythmia . Pt reports difficulty sleeping overnight given noise of hospital. He denies palpitations, LH, or dysuria. [facility] [[phone], ext [phone]] called to initiate transfer to [facility], where Cardiology EP has agreed to take patient for further work up. Objective Active Medications: Acetaminophen (Tylenol Tab*) 650 mg PO Q4H PRN PRN Reason: FEVER/PAIN Last Admin: 04/08/19 20:36 Dose: 650 mg Atorvastatin Calcium (Lipitor*) 10 mg PO BEDTIME [facility] Last Admin: 04/08/19 20:36 Dose: 10 mg Ferrous Sulfate (Ferrous Sulfate Tab*) 325 mg PO DAILY [facility] Last Admin: 04/08/19 09:38 Dose: 325 mg Finasteride (Proscar Tab*) 5 mg PO DAILY [facility] Last Admin: 04/08/19 09:39 Dose: 5 mg Ceftriaxone Sodium 1 gm/ (Sodium Chloride) 50 mls @ 100 mls/hr IVPB Q24H [facility] Last Admin: 04/08/19 11:56 Dose: 100 mls/hr Metoprolol Succinate (Toprol Xl Tab*) 50 mg PO BID [facility] Last Admin: 04/08/19 20:36 Dose: 50 mg Metoprolol Tartrate (Lopressor Iv*) 5 mg IV Q6H PRN PRN Reason: HEART RATE/PULSE GREATER THAN: Multivitamins/Minerals (Theragran/Minerals Tab*) 1 tab PO DAILY [facility] Last Admin: 04/08/19 09:39 Dose: 1 tab Pantoprazole Sodium (Protonix Tab*) 40 mg PO DAILY [facility] Last Admin: 04/08/19 09:39 Dose: 40 mg Pharmacy Profile Note (Coumadin Per Pharmacy*) 1 note FOLLOW UP .PER PHARMACY PROTOC [facility]; Protocol Potassium Chloride (Klor Con Er Tab*) 10 meq PO DAILY [facility] Last Admin: 04/08/19 09:38 Dose: 10 meq Tamsulosin HCl (Flomax Cap*) 0.4 mg PO BEDTIME [facility] Last Admin: 04/08/19 20:36 Dose: 0.4 mg Vital Signs - 8 hr 04/09/19 03:42 Temperature 98.0 F Pulse Rate 74 Respiratory 15 Rate Blood Pressure 133/80 (mmHg) O2 Sat by Pulse 98 Oximetry Oxygen Devices in Use Now: None Appearance: well appearing, NAD, alert and interactive Ears/Nose/Mouth/Throat: Clear Oropharnyx, Mucous Membranes Moist Neck: NL Appearance and Movements; NL JVP Respiratory: Symmetrical Chest Expansion and Respiratory Effort, Clear to Auscultation Cardiovascular: RRR, - - systolic murmur loudest RUSB Abdominal: NL Sounds; No Tenderness; No Distention, No Hepatosplenomegaly, - - no suprapubic tenderness Extremities: No Edema Skin: No Rash or Ulcers Neurological: Alert and Oriented x 3 Result Diagrams: 04/08/19 05:27 04/09/19 07:29 Assess/Plan/Problems-Billing Assessment: 73M with bioprosthetic AVR and ?afib on warfarin, SSS with pacer, HTN, HFpEF, h/ o lower GI bleed, who presented to ED with subacute intermittent dizziness and syncopal episode. Found with UTI, orthostatic hypotension, and multiple arrhythmias (some supraventricular but possibly also ventricular), and also with prolonged QTc. - Patient Problems (1) Syncope Comment: Orthostatic and with intermittent arrhythmias. Pacemaker interogated and reveals frequent and sustained SVT, possibly also ventricular tachyarrhythmia. Also with UTI. - appreciate Cardiology consult input - treat UTI and SVT as noted below - attempting to transfer to [facility] for EP evaluation (2) Urinary tract infection Comment: UA consistent with UTI, possibly secondary to BPH and urinary retention. - cont CTX (04/08 - ) - f/u cultures (3) SVT (supraventricular tachycardia) Comment: Episode of SVT during admission, initially suspected due to missing morning Sotalol, but now with new information from pacemaker patient seems to be having frequent tachyarrhythmias. - Cardiology consulting - sotolol discontinued, pt is on metoprolol suc 50 bid - will transfer for EP evaluation (4) Afib Comment: Hx of afib per documents from [facility] - cont warfarin - cardiology DC'ed sotolol, ordered 2 x doses of digoxin - cont metoprolol succinate 50 bid (5) CHF (congestive heart failure) Comment: HFpEF seen on TTE. - No signs of exacerbation - Cardiology DC'ed furosemide 04/08 (6) HTN (hypertension) Comment: Pt with orthostatic hypotension and presenting with syncope. Cardiology DC'ed lisinopril and amlodipine. - will consider dilt if BP's above goal (7) History of GI bleed Comment: History of lower GI bleed, now with normocytic anemia. - follow up FOBT - cont oral iron (8) Urinary retention Comment: Patient reports several years ago when in the hospital in [place] for a GI bleed he did have urinary retention is required beaulieu catheter. - Given UTI patient was bladder scanned and noted to have approx 325 mls post void. Patient is currently on Proscar, therefore, Flomax ordered. We will reassess post void and if still retaining will need beaulieu catheter - Monitor for worsening orthostasis given Proscar and Flomax (9) Gastric reflux Comment: cont home PPI (10) SSS (sick sinus syndrome) Comment: - S/P pacer (11) Heart valve replaced Comment: Bioprosthetic.
[2019-04-09 08:11] LABS: INR 2.04 (0.82-1.09)
[2019-04-09 08:19] LABS: BUN/Creatinine Ratio 20.4 (8-20); Calcium 8.6 mg/dL (8.6-10.3); EGFR African American 200.8 (>60); EGFR Non-African American 165.9 (>60); Potassium 3.6 mmol/L (3.5-5.0)
[2019-04-09] MEDS: Ferrous Sulfate TAB* 325 MG PO SCH (10:16)
[2019-04-09] MEDS: Finasteride TAB* 5 MG PO SCH (10:16)
[2019-04-09] MEDS: Multivitamins/Minerals TAB PO SCH (10:16)
[2019-04-09] MEDS: Metoprolol Succinate XL TAB* 50 MG PO SCH (10:16)
[2019-04-09] MEDS: cefTRIAXone(*) 1 GM in NS 0.9% 50 ML* 50 ML IVPB SCH (10:17)
[2019-04-09] MEDS: Potassium Chlor TAB* 10 MEQ TAB.ER PO SCH (10:17)
[2019-04-09] MEDS: Pantoprazole TAB * 40 MG TAB PO SCH (10:17)
[2019-04-09] MEDS ORDERED: Potassium Chloride* LIQUID 20 MEQ/15 ML UDC PO ONE (12:15)
[2019-04-09] MEDS ORDERED: Warfarin TAB(*) 4 MG PO ONE (17:00)
[2019-04-09] MEDS: Digoxin TAB* 0.125 MG PO SCH ×2 (17:50)
[2019-04-09 18:36] VITALS: BP 133/87
--- NOTE | 2019-04-09 21:18 | DS ---
AMENDED REPORT TO CORRECT DATE OF DISCHARGE - ESIGNED BEFORE ADJUSTMENTS CC: Que Marsh MD; Dr. Navarro * DISCHARGE SUMMARY: DATE OF ADMISSION: 04/07/19 DATE OF DISCHARGE: 04/10/19 PRIMARY CARE PHYSICIAN: Que Marsh MD PRIMARY DIAGNOSES: 1. Syncope. 2. Tachyarrhythmias. 3. Orthostatic hypotension. 4. Urinary tract infection. SECONDARY DIAGNOSES: 1. Atrial fibrillation, not seen during admission 2. Heart failure with preserved ejection fraction. 3. Hypertension. 4. Status post bioprosthetic aortic valve replacement. 5. Remote history of lower GI bleeding. CONSULTS: Cardiology, Dr. Navarro. HOME MEDICATIONS: Medications the patient was taking at [place]: 1. Warfarin 2.5 daily. 2. Sotalol 120 twice a day. 3. Lisinopril 40 daily. 4. Amlodipine 10 daily. 5. Lipitor 10 nightly. 6. Finasteride 5 mg daily. 7. Furosemide 40 mg daily. 8. Omeprazole 20 mg daily. 9. Ranitidine 150 mg twice a day. 10. Ferrous sulfate 325 mg daily. 11. Multivitamin 1 tablet daily. 12. Potassium chloride 8 mEq daily. DISCHARGE/TRANSFER MEDICATIONS: 1. Warfarin 4 mg daily. 2. Digoxin 0.125 mg daily 3. Metoprolol succinate 50 mg twice a day. 4. Tamsulosin 0.4 mg daily. 5. Finasteride 5 mg daily. 6. Atorvastatin 10 mg at bedtime. 7. Ferrous sulfate 325 mg daily. 8. Pantoprazole 40 mg daily. 9. Ceftriaxone 1 g IV daily. HISTORY OF PRESENT ILLNESS: Mr. Chaparro is a 73-year-old man with atrial fibrillation, on warfarin; sick sinus syndrome, status post pacemaker; aortic valve replacement with bioprosthetic valve; hypertension; heart failure with preserved ejection fraction; remote history of GI bleed, who presented to the emergency room after a syncopal episode. He reports that he was standing, filling out his pills into his box when he had a syncopal episode. He felt little dizzy prior to the episode and woke up on the floor with his bunkmate yelling for help. The patient denies any associated symptoms such as shortness of breath, chest pain, nausea, or palpitations. He reports that he has been experiencing dizziness on and off for approximately 10 days. He reports aggravating symptoms include standing, with alleviating symptoms including rest. He also reports that he has been feeling overly fatigued, weak, and just "not himself." The patient denies fevers, anorexia, chest pain, edema, cough, hemoptysis, shortness of breath, nausea or vomiting, abdominal pain, or weakness. HOSPITAL COURSE: In the emergency room, the patient's INR was noted to be supratherapeutic at 4.4. CT of the brain showed posterior scalp hematoma without intracranial abnormality. He also had imaging of the cervical, lumbar and thoracic spine, all of which showed no fracture or malalignment. A chest x- ray was unremarkable. Given syncope with significant cardiac history, he was admitted to the hospitalist team on the telemetry service and Cardiology was consulted. Our fur dresser, Dr. Navarro, interrogated the patient's pacemaker, which showed multiple episodes of arrhythmias, tachyarrhythmias, some of which may have been supraventricular tachycardia or atrial fibrillation, but also some could have been ventricular tachycardia. The patient also had prolonged QTc , which raised the possibility of a proarrhythmic effect from his sotalol. Of note, the patient also was positive for orthostatic changes on standing. Given these findings, the patient's sotalol was discontinued. He also had his amlodipine, lisinopril and furosemide held throughout this admission. Of note, his urinalysis also came back concerning for infection, although the patient did deny symptoms, he was started on ceftriaxone IV on 04/08/19. Prior to treatment for UTI, the patient had been retaining urine. One postvoid residual revealed a bladder with over 300 cc of urine. He was started on tamsulosin and treatment was given for his UTI, and the patient was then able to urinate freely without straining, with normal postvoid residuals. He was also noted to have an episode of SVT on his first night of admission, which resolved with metoprolol IV. By day of transfer, the patient denied 10-point review of systems except for feeling tired because the hospital is noisy and he could not sleep. PHYSICAL EXAMINATION: The patient is afebrile, heart rate 70s, blood pressure 133/80, respiratory rate 15, oxygen saturation 98% on room air. General: Well - appearing man, in no acute distress. He is alert and interactive. HEENT: With clear oropharynx and moist mucous membranes. Neck: Supple. Normal movements. No JVD. Lungs: Clear to auscultation bilaterally. Heart: Regular rate and rhythm with soft systolic murmur heard loudest at the right upper sternal border. Abdomen: Soft, nontender, nondistended without suprapubic tenderness. No CVA tenderness. Extremities were warm and well perfused without edema. Skin was without rash. Neurologic: A and O x3. Moves extremities spontaneously. Although of note, the patient does have shackles around his ankles. PERTINENT STUDIES AND LABS: Hemoglobin 11.2 with MCV 90. INR 2.04. Creatinine 0.49. Iron 25 with TIBC 374 with ferritin 40. HgbA1c 5.8%. LDL 50 with triglycerides 118. TSH 0.35. Vitamin B12 of 358 and folate 6.8. Urine culture, Staphylococcus epidermidis over 100,000 CFUs, resistant to penicillin; sensitive to cefazolin, doxycycline, nitrofurantoin. Transthoracic echocardiogram with LV systolic function normal and estimated ejection fraction 65% to 70%. Features are consistent with a pseudonormal left ventricular filling pattern with concomitant abnormal relaxation and increased filling pressure, grade 2 diastolic dysfunction, RV with normal cavity size and wall thickness mildly to moderately increased, mitral valve mildly to moderately calcified with leaflets mildly thickened. Findings consistent with trivial stenosis and trace regurgitation, aortic valve with mean systolic gradient 15 mmHg, LVOT to aortic valve VTI ratio is 0.34. The valve area of the velocity time interval method is 1.2 cm sq with the valve area by the peak velocity method at 1.1 cm sq. The aortic valve is a bioprosthetic valve without significant regurgitation. Brain CT with a posterior scalp hematoma with intact subjacent calvarium without acute intracranial abnormality with mild chronic small vessel ischemic disease likely. Cervical spine CT with no fracture or traumatic malalignment of the cervical spine, osseous fusion of the C5 and C6 vertebral bodies and facets, varying degrees of multilevel spondylosis and junctional degenerative disease at C6 through C7 and C7 through T1. This results in mild spinal stenosis at C5-C6, severe bilateral neural foraminal stenosis at C6-C7 and severe right moderate left neural foraminal stenosis at C7-T1. Chest x-ray with no active cardiopulmonary disease, elevated right hemidiaphragm , the patient is status post thoracotomy. Hip/pelvis x-ray of left hip, no evidence for fracture. DISCHARGE PLAN: Given need for EP cardiology exam and treatment, plan is to have the patient transferred to [facility] for further care, which is not available at our hospital. He should remain on telemetry for cardiac monitoring. Of note, his sotalol was stopped this admission as it could have a proarrhythmic effect on this patient. His blood pressure medicines were also recently stopped here given his orthostatic hypotension on admission and desire to start tamsulosin for urinary retention. If his blood pressures do increase above goal, it was recommended that he start diltiazem which could also keep his rhythm under control. He is also being continued on ceftriaxone for a UTI diagnosed this admission, started on 04/08/19. His warfarin was continued and he was discharged at goal, 2 to 3. Also of note, the patient was euvolemic throughout admission, and given orthostatic hypotension, his furosemide had been held, but he should continue to have his volume status monitored. He should continue healthy diet, low in processed food with activity as tolerated. DISPOSITION: [facility] CONDITION: Guarded. TIME SPENT: Approximately 60 minutes was spent on discharge of this patient, more than half of which was spent with care coordination or at bedside for interview and exam. [id number]/[facility] #: [id number] MARGARET
== END 2019-04-10 00:35 | disposition short-term general hospital (02) | DRG 204 ==
LOC: ED 09:52 → EEVIPCON 12:50 → MEDTELE 12:50 → OBSVTOIN 04-08 16:00
PROVIDERS: ADMIT Internal Medicine; ATTEND Internal Medicine
DX: R55 Syncope and collapse (principal); I47.2 Ventricular tachycardia; E87.2 Acidosis; I50.30 Unspecified diastolic (congestive) heart failure; N39.0 Urinary tract infection, site not specified; I47.1 Supraventricular tachycardia; I49.5 Sick sinus syndrome; I11.0 Hypertensive heart disease with heart failure; I45.81 Long QT syndrome; M48.02 Spinal stenosis, cervical region; I48.91 Unspecified atrial fibrillation; B95.7 Other staphylococcus as the cause of diseases classified elsewhere; S01.01XA Laceration without foreign body of scalp, initial encounter; W18.39XA Other fall on same level, initial encounter; I95.1 Orthostatic hypotension; R74.8 Abnormal levels of other serum enzymes; M50.323 Other cervical disc degeneration at C6-C7 level; M25.552 Pain in left hip; E78.5 Hyperlipidemia, unspecified; K21.9 Gastro-esophageal reflux disease without esophagitis; Z16.11 Resistance to penicillins; Y92.143 Cell of prison as the place of occurrence of the external cause; Z95.2 Presence of prosthetic heart valve; Z95.0 Presence of cardiac pacemaker; Z79.01 Long term (current) use of anticoagulants; Z79.899 Other long term (current) drug therapy; Z82.5 Family history of asthma and other chronic lower respiratory diseases; Z82.49 Family history of ischemic heart disease and other diseases of the circulatory system; Z87.891 Personal history of nicotine dependence
CPT/HCPCS: 36415; 70450; 71045; 72125; 72128; 72131; 80048; 80053; 80061; 81003; 81015; 82607; 82728; 82746; 83036; 83540; 83550; 83605; 83735; 83880; 84443; 84484; 85025; 85610; 87077; 87086; 87186; 93005; 93306; 99284; A9270-GY; G0378; J0696; J1160; J2270; J2405; J3475; J3490